=== PATIENT | female | born 1950 | race Caucasian/White ===

== ENCOUNTER 2024-04-24 13:17 | Outpatient (CLI) | payer MEDICARE, BC, SELFPAY ==
--- NOTE | ~2024-04-24 | MMUS_ITS ---
EXAMINATION: MM diagnostic calli BI w lydia, US axilla LT HISTORY: Palpable left axillary mass. TECHNIQUE: Additional 3-D tomosynthesis images of the breasts were performed and synthetic 2-D images were generated. CAD analysis was submitted and interpreted. High resolution left axillary ultrasound was performed. COMPARISON: None BREAST PARENCHYMAL COMPOSITION: Not dense: There are scattered areas of fibroglandular density. FINDINGS: MAMMOGRAPHIC FINDINGS: There is a complex heterogeneous mass in the left axilla overlying the pectoralis muscle on the MLO v iew. There is no mammographic evidence for malignancy in the right breast. ULTRASOUND: Left axillary ultrasound: There is a complex heterogeneous primarily hypoechoic area of soft tissue i n the left axilla which is poorly defined. There is mildly prominent left axillary lymph node measuri ng 1.7 x 1.7 x 0.8 cm with normal fatty hilum. No discrete fluid collection to suggest abscess. IMPRESSION: 1. Complex heterogeneous hypoechoic soft tissue in the left axilla corresponding to the palpable and mammographic abnormality. 2. Further evaluation with biopsy is recommended to exclude malignancy or infection. BI-RADS category 4, suspicious findings. Reviewed, dictated and finalized at location B. IMPRESSION: 1. Complex heterogeneous hypoechoic soft tissue in the left axilla correspondin g to the palpable and mammographic abnormality. 2. Further evaluation with biopsy is recommended to exclude malignancy or infec tion. BI-RADS category 4, suspicious findings.
== END 2024-04-24 13:18 | disposition home or self-care (01) ==
PROVIDERS: Visit Provider Family Medicine Sports Medicine
DX: R59.0 Localized enlarged lymph nodes (principal); Z80.3 Family history of malignant neoplasm of breast; R92.8 Other abnormal and inconclusive findings on diagnostic imaging of breast
CPT/HCPCS: 76882; 77062; 77066; G0279

== ENCOUNTER 2024-04-27 11:47 | Emergency (ER) | payer MEDICARE, BC, SELFPAY ==
--- NOTE | ~2024-04-27 | CT_ITS ---
EXAMINATION: CT diagnostic chest w con DATE: 04/27/2024 14:07 INDICATION: L axilla; cyst vs lymphadenopathy vs abscess TECHNIQUE: Computed tomography (CT) of the chest was performed with 100 mL Omnipaque-350 intravenous contrast. Additional 3D reconstructions utilizing coronal maximum intensity projection (MIP) were per formed. Automated exposure control and iterative reconstruction technique were employed. The dose-edilberto gth product was 214.92 mGy-cm. COMPARISON: None FINDINGS: Small pleural plaque with adjacent calcified subpleural nodules at the posterior medial aspect of the right lower lobe. There is an additional calcified nodule more centrally in the right lower lobe con sistent with old granulomatous disease. Mild discoid atelectasis/scarring with 12 x 6 mm nodule in th e medial segment of the right middle lobe which may represent material within a dilated bronchus asso ciated with the atelectasis/scarring. No pneumonia, pulmonary edema or pleural effusion. Heart size i s normal. No pericardial effusion. Thoracic aorta is normal in caliber. There is a markedly 5 x 3 x 2.5 cm ill-defined region of increased density of the subcutaneous fat at the left axilla potentially representing full or edema at the fat. No solid nodular soft tissue dens ities or discrete fluid collections. Relatively symmetric normal sized bilateral axillary lymph nodes which are positioned more cephalad on the right due to elevation of the right arm with the left arm remaining at the patient's side. No pathologically enlarged thoracic lymphadenopathy. 11 x 4 mm nodular density in the dependent aspect of the decompressed gallbladder which could represe nt either a sessile polyps or gallstones. Single diverticulum at the splenic flexure the colon withou t adjacent from trace stranding to suggest diverticulitis. Moderate thoracic spondylosis. Right total shoulder arthroplasty. IMPRESSION: 1. 5 x 3 x 2.5 cm region of poorly defined nonspecific increased density of the subcutaneous fat whic h suggests focal edema/inflammation with a few nearby normal-sized left axillary lymph nodes. No abno rmal nodular soft tissue densities within this region or discrete fluid collections. 2. Indeterminate 12 x 6 mm nodular opacity in the right middle lobe potentially representing fluid wi thin a dilated bronchus. Recommend correlation with any prior outside imaging. If long-term stability cannot be confirmed would recommend 3-6 month follow-up low-dose noncontrast chest CT. 3. 11 x 4 mm nodular density in the gallbladder which could represent either a sessile polyp or galls tone. Would recommend right upper quadrant ultrasound for further evaluation. Reviewed, dictated and finalized at location A. IMPRESSION: 1. 5 x 3 x 2.5 cm region of poorly defined nonspecific increased density of the subcutaneous fat which suggests focal edema/inflammation with a few nearby nor mal-sized left axillary lymph nodes. No abnormal nodular soft tissue densities within this region or discrete fluid collections. 2. Indeterminate 12 x 6 mm nodular opacity in the right middle lobe potentially representing fluid within a dilated bronchus. Recommend correlation with any p rior outside imaging. If long-term stability cannot be confirmed would recommen d 3-6 month follow-up low-dose noncontrast chest CT. 3. 11 x 4 mm nodular density in the gallbladder which could represent either a sessile polyp or gallstone. Would recommend right upper quadrant ultrasound for further evaluation.
[2024-04-27 11:51] VITALS: BP 175/97; PULSE 80; RESP 18; TEMP 36.3; O2SAT 100
--- NOTE | 2024-04-27 13:05 | ED.SKABFB ---
HPI - Skin/Abscess/Foreign Bdy General Chief complaint: Skin/Abscess/Foreign Body Stated complaint: cysts under arm, ALISHA told to come Time Seen by Provider: 04/27/24 12:33 Source: patient, family (sister) and other (Dr Sargent) Mode of arrival: ambulatory Limitations: no limitations History of Present Illness HPI narrative: Patient presents with a mass in her left axilla that is been present for 1-2 weeks. Patient had been evaluated for this and prescribed Bactrim on 04/18/2024 followed by clindamycin on 04/19/2024. She states she presented to emergency department in [place] last and underwent CT imaging which she was told was an infected but empty cyst (?). Patient had been referred to Dr. Sargent's office but had not yet established with him. She denies any fevers. Patient does occasionally have contact with her son who has been treated before for MRSA as well as other antibiotic resistant organisms including. She also had a mammogram recently which had also mentioned this mass. Patient states she accidentally scratched the area a few days ago drained this home pink/red/purulent material. It has continued to occasionally ooze/drain. No fevers. She and sister note it had been hot/warm/red. Dr Sargent had notified ED prior to patient's arrival that she would be coming. Related Data Allergies Allergy/AdvReac Type Severity Reaction Status Date / Time No Known Allergies Allergy Verified 04/27/24 11:54 PMFSH Past Medical History Medical History (Updated 04/28/24 @ 05:35 by Shirley Flores MD) Screening mammogram, encounter for April 2024 Family History Family History (Updated 04/28/24 @ 05:35 by Shirley Flores MD) Other Breast cancer Social History Social History (Updated 04/28/24 @ 05:38 by Shirley Flores MD) Social History: Has a sister Volunteers at a [employer] Exam Narrative: GENERAL: Well-appearing, well-nourished, and in no acute distress. HEAD: Normocephalic, atraumatic. EYES: Non injected, non icteric ENT: Nares clear, no rhinorrhea or epistaxis. NECK: Supple. CHEST: Speaking in full sentences. No respiratory distress. HEART: Regular rate and rhythm. . ABDOMEN: Soft, nondistended. EXTREMITIES: Normal range of motion. No edema. SKIN: Warm, dry. Slightly firm/rubbery texture of a 6x6cm mass (based on grasping) at left axilla, fairly mobile. 2 superficial wounds overly them without active drainage. Not particularly warm. Very mild erythema. NEURO: No focal deficits. Alert and oriented x3. PSYCH: Normal mood and affect. Course Vital Signs Vital signs: Vital Signs Temperature 97.3 F L 04/27/24 11:51 Pulse Rate 80 04/27/24 11:51 Respiratory Rate 18 04/27/24 11:51 Blood Pressure 175/97 H 04/27/24 11:51 Pulse Oximetry 100 04/27/24 11:51 Oxygen Delivery Room Air 04/27/24 11:51 Temperature 98.6 F 04/27/24 16:30 Pulse Rate 78 04/27/24 16:30 Respiratory Rate 16 04/27/24 16:30 Blood Pressure 137/62 04/27/24 16:30 Pulse Oximetry 98 04/27/24 16:30 Oxygen Delivery Room Air 04/27/24 11:51 MDM - Skin/Abscess/Foreign Bdy MDM Narrative Medical decision making narrative: Patient presents with fell left axillary mass that has been present for the past 1-2 weeks. Patient had been referred to Dr Sargent whose office recommended she present to the ED; Dr Sargent had notified ED of patient's arrival prior. In the emergency department she is afebrile with vital signs that show hypertension. Mass on the surface is approximately 6 cm x 6 cm, firm/rubbery but not frankly indurated. Point of care/bedside ultrasound performed by myself. Structure does not appear to be a discrete abscess as it is poorly defined. Reviewed recent imaging patient underwent (ultrasound/mammogram) that recommended US-guided biopsy. Unable to view CT imaging from last week at OSH. Will obtain labs and obtain CT imaging ; discussed with Dr Sargent. Creatinine mildly elevate
[2024-04-27 13:45] LABS: Basophils Percent Auto 0.6 % (0.2-1.2); Eosinophils Absolute Auto 0.1 K/mm3 (0-0.3); Eosinophils Percent Auto 1.8 % (0-4.4); Hematocrit 39.9 % (37.0-47.0); Hemoglobin 12.6 g/dL (12.0-15.0); Immature Granulocyte Absolute 0.05 K/mm3 (0.00-0.031); Immature Granulocyte Percent A 0.8 % (0-0.5); Lymphocytes Absolute Auto 1.77 K/mm3 (0.9-3.2); Lymphocytes Percent Auto 28.5 % (18.3-44.2); Mean Corpuscular HGB Conc 31.6 g/dl (32-36); Mean Corpuscular Hemoglobin 28.6 pg (26-34); Mean Corpuscular Volume 90.5 fl (80-100); Mean Platelet Volume 8.6 fl (7.4-10.4); Monocytes Absolute Auto 0.5 K/mm3 (0.1-0.6); Monocytes Percent Auto 8.4 % (2.6-8.5); Neutrophils Absolute Auto 3.7 K/mm3 (1.3-6.7); Neutrophils Percent Auto 59.9 % (45.5-73.1); Platelet Count Result 394 k/mm3 (150-375); Red Blood Count 4.41 M/mm3 (4.2-5.4); Red Cell Distribution Width 13.4 % (11.5-14.5); White Blood Count 6.2 K/mm3 (4.5-10.0)
[2024-04-27 13:53] LABS: Anion Gap 10 mmol/L (4-12); Blood Urea Nitrogen 17 mg/dL (7-17); Calcium 9.6 mg/dL (8.4-10.2); Carbon Dioxide 28 mmol/L (22-30); Chloride 100 mmol/L (98-107); Estimated CRCL calculation 38 ml/min; Estimated Glomerular Filt Rate 49; Glucose 104 mg/dL (65-110); Potassium 4.7 mmol/L (3.4-5.0); Sodium 138 mmol/L (137-145)
[2024-04-27 13:54] LABS: Lactic Acid Reflex 1.6 mmol/L (0.7-2.0)
[2024-04-27] MEDS: SODIUM CHLORIDE 0.9% IV 1,000 ML 999 ML IV CONT (14:26)
[2024-04-27 16:30] VITALS: BP 137/62; PULSE 78; RESP 16; TEMP 37; O2SAT 98
== END 2024-04-27 16:31 | disposition home or self-care (01) ==
PROVIDERS: Emergency Provider Student in an Organized Health Care Education/Training Program
DX: R22.32 Localized swelling, mass and lump, left upper limb (principal); D75.839 Thrombocytosis, unspecified; N17.9 Acute kidney failure, unspecified; K82.9 Disease of gallbladder, unspecified; R91.8 Other nonspecific abnormal finding of lung field
CPT/HCPCS: 36415; 71260; 80048; 83605; 85025; 96360; 99284; J7030; Q9967

== ENCOUNTER 2024-05-03 10:43 | Outpatient (CLI) | payer MEDICARE, BC, SELFPAY ==
[2024-05-03 12:13] LABS: Anion Gap 7 mmol/L (4-12); Blood Urea Nitrogen 17 mg/dL (7-17); Calcium 9.3 mg/dL (8.4-10.2); Carbon Dioxide 30 mmol/L (22-30); Chloride 102 mmol/L (98-107); Estimated Glomerular Filt Rate > 60; Glucose 96 mg/dL (65-110); Potassium 4.6 mmol/L (3.4-5.0); Sodium 139 mmol/L (137-145)
== END 2024-05-03 10:44 | disposition home or self-care (01) ==
LOC: ANHLAB 10:46
PROVIDERS: PCP Family Medicine Sports Medicine; Visit Provider Surgery
DX: N17.9 Acute kidney failure, unspecified (principal)
CPT/HCPCS: 36415; 80048

== ENCOUNTER 2024-05-07 08:47 | Outpatient (CLI) | payer MEDICARE, BC, SELFPAY ==
--- NOTE | ~2024-05-07 | US_ITS ---
Limited ABDOMINAL ULTRASOUND Ordering provider: Odell Sargent MD History: . R93.2 - Abnormal findings on diagnostic imaging of liver ... . Comparison: None. FINDINGS: LIVER: Normal size and echotexture. The liver measures 14.5 cm. No focal hepatic lesions or perihepat ic fluid collections are identified. Normal portal vein flow. GALLBLADDER: Cholelithiasis. Stone measures 0.8 cm. No evidence for sludge, gallbladder wall thickeni ng or pericholecystic fluid collections. The gallbladder wall measures 0.2 cm. A negative sonographic Veras's sign was noted. BILIARY DUCTS: No evidence for intra or extrahepatic biliary dilation. Common bile duct measures 6 mm in diameter which is within normal limits. PANCREAS: Normal echotexture and size. IMPRESSION: Cholelithiasis with no evidence of acute cholecystitis. Other appearances are unremarkable. Reviewed, dictated and finalized at location A.
== END 2024-05-07 08:48 ==
LOC: GOSHIMG 08:48
PROVIDERS: PCP Family Medicine Sports Medicine; Visit Provider Surgery
DX: K80.20 Calculus of gallbladder without cholecystitis without obstruction (principal); R93.2 Abnormal findings on diagnostic imaging of liver and biliary tract
CPT/HCPCS: 76705

== ENCOUNTER 2024-05-15 08:54 | Outpatient (CLI) | payer MEDICARE, BC, SELFPAY ==
--- NOTE | ~2024-05-15 | US_ITS ---
EXAMINATION: US_BXSTAXLIMG_US DATE: 05/15/2024 10:12 INDICATION: Localized swelling, mass and lump, left axilla. TECHNIQUE: The procedure including the risks, benefits, and alternatives was discussed with the patie nt. Risks discussed included bleeding and infection. The patient understood the risks and agreed to p roceed. The skin overlying the left axilla was prepped and draped in usual sterile fashion. Anesthet ic was administered with 1% lidocaine subcutaneously. An 18-gauge spinal needle was inserted into the left axillary cystic mass under ultrasound guidance. The fluid component of the mass was expressed t hrough the needle. An 18 gauge core biopsy needle was then used to obtain 3 core biopsy specimens und er continuous sonographic guidance. The entry site was cleaned and dressed. There were no immediate complications. FINDINGS: Ultrasound images demonstrate the needle in 3.1 x 0.5 cm cystic component of the left axill alethea abnormality. Ultrasound images demonstrate needles advanced into the surrounding hyperechoic comp onent in the subcutaneous fat for biopsy. IMPRESSION: 1. Ultrasound-guided core needle biopsy and drainage of an ill-defined hyperechoic subcutaneous left axillary mass with central cystic component, most likely an abscess. Reviewed, dictated and finalized at location A. IMPRESSION: 1. Ultrasound-guided core needle biopsy and drainage of an ill-defined hyperech oic subcutaneous left axillary mass with central cystic component, most likely an abscess.
== END 2024-05-15 08:55 | disposition home or self-care (01) ==
PROVIDERS: PCP Family Medicine Sports Medicine; Visit Provider Surgery
DX: R22.32 Localized swelling, mass and lump, left upper limb (principal)
CPT/HCPCS: 20999; 76942; 88305

== ENCOUNTER 2025-04-30 14:39 | Outpatient (CLI) | payer MEDICARE, BC, SELFPAY ==
--- NOTE | ~2025-04-30 | CT_ITS ---
EXAMINATION: CT diagnostic chest wo con DATE: 04/30/2025 15:07 INDICATION: R91.1 - Solitary pulmonary nodule TECHNIQUE: Computed tomography (CT) of the chest was performed without intravenous contrast. Addition al 3D reconstructions utilizing coronal maximum intensity projection (MIP) were performed. Automated exposure control and iterative reconstruction technique were employed. The dose-length product was 95 .22 mGy-cm. COMPARISON: 10/28/2024 FINDINGS: No interval change in a right middle lobe 8 mm endobronchial nodule with bronchiectasis of the more p eripheral bronchus. Unchanged noncalcified pleural plaque along the posterior right lower lobe along with multiple unchanged chronic calcite nodules in the right lower lobe. There are a few additional u nchanged noncalcified nodules measuring up to 5 mm in the right middle lobe and 4 mm in the left lowe r lobe. No new or enlarging pulmonary nodules. No pneumonia, pulmonary edema or pleural effusion. Hea rt size normal. Small amount of atherosclerotic coronary artery calcium location. No pericardial effu dante. Thoracic aorta is normal in caliber. No pathologically enlarged thoracic lymphadenopathy. Calci fied gallstone in the dependent aspect of the otherwise normal-appearing gallbladder. Moderate thorac ic spondylosis. IMPRESSION: 1. No interval change in several pulmonary nodules measuring up to 8 mm, most likely sequela of old g ranulomatous disease. Recommend one-year follow-up low-dose noncontrast chest CT. 2. Cholelithiasis. Reviewed, dictated and finalized at location A. IMPRESSION: 1. No interval change in several pulmonary nodules measuring up to 8 mm, most l ikely sequela of old granulomatous disease. Recommend one-year follow-up low-do se noncontrast chest CT. 2. Cholelithiasis.
--- OUTSIDE RECORDS SUMMARY | 2025-04-30 14:52 | XMS_ITS | Referral Summary ---
Author Organization [facility] Address [address] [place] [id number] Care Team Providers Care Hvac Specialist Name Role Phone Deborah Evans DO Primary Care Provider [phone] Allergies No known active allergies Medications DULoxetine DR (CYMBALTA) 60 mg capsuleIndicati ons:Anxiety with Depression Take 1 capsule (60 mg total) by mouth 2 (two) times a day Active montelukast (SINGULAIR) 10 mg tabletIndicatio ns:Maintenance Therapy for Asthma Take 1 tablet (10 mg total) by mouth nightly [address] (PROTONIX) 40 mg EC tabletIndicatio ns:Treatment of Non-Bleeding Gastric Disorder Take 1 tablet (40 mg total) by mouth every morning Active pravastatin (PRAVACHOL) 20 mg tabletIndicatio ns:hyperlipidem ia Take 1 tablet (20 mg total) by mouth head of art before breakfast 0 9 Active carboxymethylce llulose (REFRESH TEARS) 0.5 % ophthalmic solutionIndicat ions:Dry Eye Administer 1 drop into both eyes as needed Active busPIRone (BUSPAR) 5 mg tabletIndicatio ns:Generalized Anxiety Disorder Take 1 tablet (5 mg total) by mouth as needed 0 Active Breo Ellipta 200-25 mcg/dose diskus inhalerIndicati ons:Maintenance Therapy for Asthma Inhale 1 puff as needed 0 Active levothyroxine (SYNTHROID) 150 mcg tabletIndicatio ns:hypothyroidi sm Take 1 tablet (150 mcg total) by mouth head of art before breakfast 0 Active losartan (COZAAR) 100 mg tabletIndicatio ns:hypertension Take 1 tablet (100 mg total) by mouth every morning 0 Active calcium carbonate-vitam in D3 500mg (1,250mg) -600 unit tabletIndicatio ns:Hypocalcemia Prevention Take 1 tablet/capsule by mouth head of art before breakfast Active buPROPion XL (WELLBUTRIN XL) 150 mg 24 hr tabletIndicatio ns:Anxiety with Depression Take 1 tablet (150 mg total) by mouth every morning 3 Active albuterol (PROAIR RESPICLICK) 90 mcg/actuation inhalerIndicati ons:Acute Asthma Attack Inhale 2 puffs every 6 (six) hours as needed for wheezing Active fluticasone propionate (FLONASE) 50 mcg/actuation nasal sprayIndication s:Allergic Rhinitis Administer 1 spray into each nostril as needed for rhinitis Active ZINC ORALIndications :supplement Take 1 tablet/capsule by mouth every morning Active UNABLE TO FINDIndications :supplement Take 1 each by mouth every morning Med Name: Golo Active UNABLE TO FINDIndications :supplement Take 1 each by mouth every morning Med Name: Cogniforce Active MULTIVITAMIN ORALIndications :supplement Take 1 tablet/capsule by mouth every morning Active oxyCODONE (ROXICODONE) 5 mg immediate release tabletIndicatio ns:Pain Take 1 tablet (5 mg total) by mouth every 4 (four) hours as needed for pain 40 tablet 4 Active acetaminophen (TYLENOL) 500 mg tabletIndicatio ns:Pain Take 2 tablets (1,000 mg total) by mouth every 6 (six) hours 120 tablet 4 Active aspirin 81 mg enteric coated tabletIndicatio ns:prevention of thrombosis Take 1 tablet (81 mg total) by mouth 2 (two) times a day for 14 days 28 tablet 4 Active docusate sodium (COLACE) 100 mg capsuleIndicati ons:constipatio n Take 1 capsule (100 mg total) by mouth 2 (two) times a day 30 capsule 4 Active Active Problems Problem Noted Date Diagnosed Date Arthritis of right glenohumeral joint 12/14/2023 Primary osteoarthritis of right shoulder 023 Chronic kidney disease, unspecified 05/23/2022 Hypertensive chronic kidney disease w stg 1-4/un sp chr kdny 05/23/2022 Mild intermittent asthma without complication Other chronic pain 05/23/2022 Other disorders of pituitary gland 05/23/2022 Presence of left artificial knee joint Recurrent major depressive disorder, in remissio n 05/23/2022 Primary osteoarthritis of left hip 05/20/2022 Primary localized osteoarthritis of left hip Overview (03/02/2022): Added automatically from request for surgery [id number] Primary osteoarthritis of right hip 01/11/2022 Overview (01/11/2022): Added automatically from request for surgery [id number] Spinal stenosis of lumbosacral region 05/19/2021 Overview (12/03/2021): L3-4, L4-5, L5-S1 worst Generalized anxiety disorder 03/17/2020 Sciatica of left side 03/17/2020 Multiple lung nodules on CT 11/12/[address] of the abdomen 09/25/2019 Generalized abdominal pain 09/11/2019 Allergic rhinitis 06/27/2018 Overview (12/03/2021): Date Onset: 06/27/2018 Date Onset: 06/27/2018 Date Onset: 06/27/2018 BMI 36.0-36.9,adult 06/27/2018 Overview (12/03/2021): Date Onset: 06/27/2018 Date Onset: 06/27/2018 Date Onset: 06/27/2018 Fatigue 06/27/2018 Overview (12/03/2021): Date Onset: 06/27/2018 Date Onset: 06/27/2018 Date Onset: 06/27/2018 Marital conflict 06/27/2018 Overview (12/03/2021): Date Onset: 06/27/2018 Date Onset: 06/27/2018 Date Onset: 06/27/2018 Pruritic disorder 06/27/2018 Overview (12/03/2021): Date Onset: 06/27/2018 Date Onset: 06/27/2018 Date Onset: 06/27/2018 RLS (restless legs syndrome) 06/27/2018 Overview (12/03/2021): Note: Dr. Gasper Rainey Date Onset: 05/21/12 Date Onset: 06/27/2018 Note: Dr. Gasper Rainey Date Onset: 05/21/12 Date Onset: 06/27/2018 Note: Dr. Gasper Rainey Date Onset: 05/21/12 Date Onset: 06/27/2018 Seborrheic keratosis 06/27/2018 Overview (12/03/2021): Date Onset: 06/27/2018 Date Onset: 06/27/2018 Date Onset: 06/27/2018 UTI (urinary tract infection) 06/27/2018 Overview (12/03/2021): Date Onset: 06/27/2018 Date Onset: 06/27/2018 Date Onset: 06/27/2018 Urinary frequency 06/27/2018 Overview (12/03/2021): Date Onset: 06/27/2018 Date Onset: 06/27/2018 Date Onset: 06/27/2018 Cholecystitis 12/08/2017 Overview (12/03/2021): Date Onset: 12/08/2017 Date Onset: 12/08/2017 Date Onset: 12/08/2017 Hiatal hernia 12/08/2017 Overview (12/03/2021): Date Onset: 12/10/2013 Date Onset: 12/08/2017 Date Onset: 12/08/2017 Date Onset: 12/10/2013 Date Onset: 12/08/2017 Date Onset: 12/08/2017 Date Onset: 12/10/2013 Date Onset: 12/08/2017 Date Onset: 12/08/2017 Vertigo 12/08/2017 Overview (12/03/2021): Date Onset: 12/08/2017 Date Onset: 12/08/2017 Date Onset: 12/08/2017 Forgetfulness 07/28/2017 Overview (12/03/2021): Date Onset: 07/28/2017 Date Onset: 07/28/2017 Date Onset: 07/28/2017 Headache 07/28/2017 Overview (12/03/2021): Date Onset: 07/28/2017 Date Onset: 07/28/2017 Date Onset: 07/28/2017 History of surgical procedure 07/28/2017 Overview (08/05/2020): Date Onset: 07/28/2017 Herniation of intervertebral disc between L5 and S1 07/28/2017 Overview (12/03/2021): Date Onset: 07/28/2017 Date Onset: 07/28/2017 Date Onset: 07/28/2017 Impaired fasting glucose 07/28/2017 Overview (12/03/2021): Date Onset: 07/28/2017 Date Onset: 06/27/2018 Date Onset: 07/28/2017 Date Onset: 06/27/2018 Date Onset: 07/28/2017 Date Onset: 06/27/2018 Numbness of finger 07/28/2017 Overview (12/03/2021): Date Onset: 07/28/2017 Date Onset: 07/28/2017 Date Onset: 07/28/2017 Osteophyte 07/28/2017 Overview (12/03/2021): Date Onset: 02/25/2014 Date Onset: 07/28/2017 Date Onset: 02/25/2014 Date Onset: 07/28/2017 Date Onset: 02/25/2014 Date Onset: 07/28/2017 Spinal stenosis of lumbar region 07/28/2017 Overview (12/03/2021): Date Onset: 02/25/2014 Date Onset: 07/28/2017 Date Onset: 02/25/2014 Date Onset: 07/28/2017 Date Onset: 02/25/2014 Date Onset: 07/28/2017 History of lumbar laminectomy for spinal cord de compression 07/28/2017 Overview (12/03/2021): Date Onset: 07/28/2017 Date Onset: 07/28/2017 Arachnoid cyst 09/16/2016 Overview (12/03/2021): Date Onset: 11/13/2015 Date Onset: 11/13/2015 Date Onset: 11/13/2015 Lesion of brain 09/16/2016 Overview (12/03/2021): Date Onset: 07/28/2017 Date Onset: 08/05/2016 Date Onset: 07/28/2017 Date Onset: 08/05/2016 Date Onset: 07/28/2017 Date Onset: 08/05/2016 JV positive 08/05/2016 Overview (12/03/2021): Date Onset: 08/05/2016 Date Onset: 08/05/2016 Date Onset: 08/05/2016 Degenerative disc disease, cervical 08/05/2016 Overview (12/03/2021): Date Onset: 08/05/2016 Date Onset: 05/28/2015 Date Onset: 08/05/2016 Date Onset: 05/28/2015 Date Onset: 08/05/2016 Date Onset: 05/28/2015 Postmenopausal 08/05/2016 Overview (12/03/2021): Date Onset: 08/05/2016 Date Onset: 08/05/2016 Date Onset: 08/05/2016 Spondylolisthesis 08/05/2016 Overview (12/03/2021): Date Onset: 03/29/2014 Date Onset: 05/28/2015 Date Onset: 08/05/2016 Date Onset: 03/29/2014 Date Onset: 05/28/2015 Date Onset: 08/05/2016 Date Onset: 03/29/2014 Date Onset: 05/28/2015 Date Onset: 08/05/2016 Vitreous detachment of both eyes 08/05/2016 Overview (12/03/2021): Date Onset: 08/05/2016 Date Onset: 08/05/2016 Date Onset: 08/05/2016 Self-excoriation disorder 04/27/2016 Overview (12/03/2021): Date Onset: 04/27/2016 Date Onset: 04/27/2016 Date Onset: 04/27/2016 Biomechanical lesion 11/13/2015 Overview (12/03/2021): Date Onset: 11/13/2015 Date Onset: 11/13/2015 Date Onset: 11/13/2015 Date Onset: 11/13/2015 Date Onset: 11/13/2015 Date Onset: 11/13/2015 Nonallopathic lesion of sacral region 11/13/2015 Overview (12/03/2021): Date Onset: 11/13/2015 Date Onset: 11/13/2015 Date Onset: 11/13/2015 Other cervical disc displace ment, unspecified cervical region 11/13/2015 Overview (12/03/2021): Date Onset: 11/13/2015 Date Onset: 11/13/2015 Date Onset: 11/13/2015 Anxiety 07/01/2015 Hypothyroidism 07/01/2015 Urinary incontinence 07/01/2015 Empty sella syndrome 07/01/2015 Gastroesophageal reflux disease 07/01/2015 Hyperlipidemia 07/01/2015 Migraine headache 07/01/2015 Diarrhea 05/08/2015 Overview (12/03/2021): Date Onset: 05/08/2015 Date Onset: 05/08/2015 Date Onset: 05/08/2015 Date Onset: 05/08/2015 Date Onset: 05/08/2015 Date Onset: 05/08/2015 Swelling of first metatarsophalangeal (MTP) join t 05/08/2015 Overview (12/03/2021): Date Onset: 05/08/2015 Date Onset: 05/08/2015 Date Onset: 05/08/2015 Vision changes 05/08/2015 Overview (12/03/2021): Date Onset: 05/08/2015 Date Onset: 05/08/2015 Date Onset: 05/08/2015 Injury to nerve roots and spinal plexus 02/26/20 14 Overview (12/03/2021): Date Onset: 02/25/2014 Date Onset: 02/25/2014 Date Onset: 02/25/2014 Other symptoms involving head and neck 4 Overview (12/03/2021): Date Onset: 02/25/2014 Date Onset: 02/25/2014 Date Onset: 02/25/2014 Nausea with vomiting 02/05/2014 Overview (12/03/2021): Date Onset: 02/05/2014 Date Onset: 02/05/2014 Date Onset: 02/05/2014 Intervertebral disc disorder with radiculopathy of lumbosacral region 01/03/2014 Overview (12/03/2021): Added automatically from request for surgery [id number] Date Onset: 01/03/2014 Overview: Added automatically from request for surgery [id number] Added automatically from request for surgery [id number] Chronic low back pain 01/03/2014 Overview (12/03/2021): Date Onset: 12/08/2017 Date Onset: 01/03/2014 Date Onset: 12/08/2017 Date Onset: 01/03/2014 Date Onset: 12/08/2017 Date Onset: 01/03/2014 Hypertension 01/03/2014 Overview (12/03/2021): Date Onset: 07/28/2017 Date Onset: 01/03/2014 Date Onset: 06/27/2018 Date Onset: 11/09/2016 Date Onset: 07/28/2017 Date Onset: 01/03/2014 Date Onset: 06/27/2018 Date Onset: 11/09/2016 Date Onset: 07/28/2017 Date Onset: 01/03/2014 Date Onset: 06/27/2018 Date Onset: 11/09/2016 Left leg pain 01/03/2014 Overview (12/03/2021): Date Onset: 01/03/2014 Date Onset: 01/03/2014 Date Onset: 01/03/2014 Disturbance of skin sensation 11/19/2013 Overview (12/03/2021): Date Onset: 11/19/2013 Date Onset: 11/19/2013 Date Onset: 11/19/2013 Other specified disorders of rotator cuff syndrome of shoulder and allied disorders 11/19/2013 Overview (12/03/2021): Date Onset: 07/12/2013 Date Onset: 11/19/2013 Date Onset: 07/12/2013 Date Onset: 11/19/2013 Date Onset: 07/12/2013 Date Onset: 11/19/2013 Pain in joint, hand 11/19/2013 Overview (12/03/2021): Date Onset: 06/04/2013 Date Onset: 11/19/2013 Date Onset: 06/04/2013 Date Onset: 11/19/2013 Date Onset: 06/04/2013 Date Onset: 11/19/2013 Shoulder pain 11/19/2013 Overview (12/03/2021): Date Onset: 11/19/2013 Date Onset: 11/19/2013 Date Onset: 11/19/2013 Upper respiratory infection 11/19/2013 Overview (12/03/2021): Date Onset: 11/19/2013 Date Onset: 11/19/2013 Date Onset: 11/19/2013 Other depressive disorder 07/12/2013 Overview (12/03/2021): Date Onset: 07/12/2013 Date Onset: 07/12/2013 Date Onset: 07/12/2013 Personal history presenting hazards to health Overview (12/03/2021): Date Onset: 06/04/2013 Date Onset: 06/04/2013 Date Onset: 06/04/2013 Generalized osteoarthrosis, involving multiple s ites 02/16/2013 Overview (12/03/2021): Note: right hip Date Onset: 02/16/2013 Note: right hip Date Onset: 02/16/2013 Note: right hip Date Onset: 02/16/2013 Arthralgia of hip 02/15/2013 Overview (12/03/2021): Date Onset: 02/15/2013 Date Onset: 02/15/2013 Date Onset: 02/15/2013 Family history of other cardiovascular diseases 02/15/2013 Overview (12/03/2021): Date Onset: 02/15/2013 Date Onset: 02/15/2013 Date Onset: 02/15/2013 Fecal urgency 02/15/2013 Overview (12/03/2021): Date Onset: 12/08/2017 Date Onset: 02/15/2013 Date Onset: 12/08/2017 Date Onset: 02/15/2013 Date Onset: 12/08/2017 Date Onset: 02/15/2013 Laboratory exam ordered as p art of routine general medical examination 02/15/2013 Overview (12/03/2021): Date Onset: 02/15/2013 Date Onset: 02/15/2013 Date Onset: 02/15/2013 Other chronic nonalcoholic liver disease 013 Overview (12/03/2021): Date Onset: 02/15/2013 Date Onset: 06/12/2013 Date Onset: 02/15/2013 Date Onset: 06/12/2013 Date Onset: 02/15/2013 Date Onset: 06/12/2013 Other specified abnormal findings of blood chemi stry 02/15/2013 Overview (12/03/2021): Date Onset: 02/15/2013 Date Onset: 02/15/2013 Date Onset: 02/15/2013 Esophagitis, reflux 08/18/2012 Overview (12/03/2021): Date Onset: 01/2011 Date Onset: 01/2011 Date Onset: 01/2011 Dry skin 08/18/2012 Other, multiple, and unspeci fied sites, insect bite, nonvenomous, infected 06/01/2012 Overview (12/03/2021): Date Onset: 06/01/2012 Date Onset: 06/01/2012 Date Onset: 06/01/2012 Asthma 01/14/2012 Sleep apnea, obstructive 01/14/2012 Overview (12/03/2021): Note: Dr. Gasper Rainey Date Onset: 01/15; 05/21/12 Note: Dr. Gasper Rainey Date Onset: 01/15; 05/21/12 Note: Dr. Gasper Rainey Date Onset: 01/15; 05/21/12 Immunizations Immunization Administration Dates Next Due Influenza, Quad, Adjuvantate d, Intramuscular 07/20/2020 Influenza, Quadrivalent, Hig h Dose, Preservative Free, Intrr 06/23/2021 Influenza, Trivalent, High D ose, Split, Preservative Free, Intramuscular 06/23/2021,07/16/2019,07/18/2018,07/13 Influenza, Trivalent, Preser vative Free, Intramuscular 07/23/2017,07/23/2017,08/10/2015,10/10,10/10/2014,07/10/2014 Influenza, Unspecified 06/23/2021,2019,07/20/2020,07/20,07/16/2019,07/17/2018,07/10/2018 ,07/23/2017,07/23/2017,07/13/2017,01/2017,09/09/2016,08/10/2015, 5,10/10/2014,07/10/2014 Pneumococcal Conjugate PCV 13 07/18/2018 Pneumococcal Conjugate, Unspecified 07/18/2018 Pneumococcal Polysaccharide PPV23 08/31/2020,,09/16/2016 Tdap 11/10/2024,09/16/2016 ZOSTER Recombinant 02/17/2021,,02/17/2021,10/14,10/14/2020 Social History Tobacco Use Types Packs/Day Years Used Date Smoking Tobacco: Former Cigarettes 1 10 1 965 - 1974 Smokeless Tobacco: Never Tobacco Cessation:Counseling Given: Not Answered Alcohol Use Standard Drinks/Week Comments Yes 0 (1 standard drink = 0.6 oz pur e alcohol) less than 1 per month AUDIT-C Answer Date Recorded Q1: How often do you have a drink containing alc ohol? 2-4 times a month 12/14/2023 Average Number of Drinks Not on file 024 Frequency of Binge Drinking Not on file 03/2024 Personal Safety Answer Date Recorded Have you ever been in or are you currently in a harmful physical or emotional relationship or is someone making you feel afraid or unsafe? Denies 11/10/2024 Comments No Sex and Gender Information Value Date Recorded Sex Assigned at Not on file Legal Sex Female 6:42 AM SPINNING FRAME [employer] Gender Identity Not on file Sexual Orientation Not on file Occupation Industry Job Start Date Job End Date Retired Not on file Not on file Not on file Last Filed Vital Signs Vital Sign Reading Time Taken Comments Blood Pressure 163/82 11/11/2024 1:30 AM [employer] Pulse 84 11/11/2024 1:30 AM [employer]ING [employer] Temperature 36.4 C (97.6 F) 11/10/2024 11:00 PM [employer]ING [employer] Respiratory Rate 29 11/11/2024 1:30 AM [employer]ING [employer] Oxygen Saturation 98% 11/11/2024 1:30 AM [employer]ING FRAME [employer] Inhaled Oxygen Concentration - - Weight 73 kg (161 lb) 05/08/2024 1:07 PM CDT Height 156.2 cm (5' 1.5) 05/08/2024 1:07 PM CDT Body Mass Index 29.93 05/08/2024 1:07 PM CDT Plan of Treatment Not on file Goals Goal Patient Goal Type Associated Problems Recent Progress Patient-Stated? Author CCM Chronic Pain Care Plan Chronic Care Management No Yudi Morales, RN Note: Problem: Chronic Pain Goals: 1. Minimize further functional decline 2. Maximize quality of life 3. Control pain Strategies: - Activity/exercise program recommendation - Conservative stepwise pain medicine strategy with multi-disciplinary approach - Recommend healthy lifestyle strategies and compensatory methods as needed Reduce the likelihood of falling Lifestyle No Yudi Morales, RN Note: Below are four things you can do to prevent falls: Begin an exercise program to improve your leg strength & balance Ask your doctor or pharmacist to review your medicines Get annual eye check-ups & update your eyeglasses Make your home safer by: Removing clutter & tripping hazards Putting railings on all stairs & adding grab bars in the bathroom Having good lighting, especially on stairs Contact your local community or senior center for information on exercise, fall prevention programs, or options for improving home safety. Medical Devices Implanted Type Area Lacquer Machine Feeder Device Identifier Shelf Expiration Date Model / Serial / Lot [employer] [place] 56mm Sector Hip Shell Acetabular Gription Sterile Latex Free [id number] - [id number] Implanted:Qty: 1 on 01/27/2022 by Raymon Roque MD at [facility] Right: Hip [employer] [id number] 11/09/2031 [id number] / / [employer] [place] 6.5mm 30mm Acetabular Cancellous Screw Bone Revision 1217-30-500 - [id number] Implanted:Qty: 1 on 01/27/2022 by Raymon Roque MD at [facility] Right: Hip [employer] [id number] 06/09/2031 1217-30-500 / / [employer] [id number] [place] 56mm 40mm Hip Neutral Liner Acetabular Altrx Sterile - [id number] Implanted:Qty: 1 on 01/27/2022 by Raymon Roque MD at [facility] Right: Hip [employer] [id number] 11/09/2026 [id number] / / [employer] [id number] Actis Collared Hip 09/22 4 Standard Offset Stem Femoral - [id number] Implanted:Qty: 1 on 01/27/2022 by Raymon Roque MD at [facility] Right: Hip [employer] [id number] 04/08/2031 [id number] / / [id number] [employer] Articul/Chase 40mm Sleeve Total Stabilize Hip +1.5mm 09/22 Taper [id number] - [id number] Implanted:Qty: 1 on 01/27/2022 by Raymon Roque MD at [facility] Right: Hip [employer] [id number] 11/09/2026 [id number] / / [id number] [employer] Stem Insignia Hip Size 4 High Offset 4672-6171 - [id number] Implanted:Qty: 1 on 05/20/2022 by Raymon Roque MD at [facility] Left: Hip [employer] [id number] 03/31/2027 0434-1815 / / [id number] [employer] V40 Hip -2.5mm Offset [place] Taper Sleeve Adapter Titanium 6519-T-025 - [id number] Implanted:Qty: 1 on 05/20/2022 by Raymon Roque MD at [facility] Left: Hip [employer] [id number] 11/18/2026 6519-T-025 / / [id number] [employer] 40mm Hip [place] Taper Head Femoral Biolox Delta 6519-1-040 - [id number] Implanted:Qty: 1 on 05/20/2022 by Raymon Roque MD at [facility] Left: Hip [employer] [id number] 01/26/2027 6519-1-040 / / [id number] [employer] Shell Acetabular Trident Ii Tritanium E Od52mm Hip 11 Hole Sterile 709-04-52e - [id number] Implanted:Qty: 1 on 05/20/2022 by Raymon Roque MD at [facility] Left: Hip [employer] [id number] 04/01/2027 709-04-52E / / [id number] [employer] Screw Bone Trident Ii L25mm Od6.5mm Low Profile Hexagonal Sterile 9252-8159 - [id number] Implanted:Qty: 1 on 05/20/2022 by Raymon Roque MD at [facility] Left: Hip [employer] [id number] 04/25/2027 3733-1764 / / [id number] [employer] Screw Bone Trident Ii L25mm Od6.5mm Low Profile Hexagonal Sterile 2158-1736 - [id number] Implanted:Qty: 1 on 05/20/2022 by Raymon Roque MD at [facility] Left: Hip [employer] [id number] 04/25/2027 4816-5767 / / [id number] [employer] Liner Acetabular Hip Trident X3 40mm Polyethylene 0 Degree Size E 723-00-40e - [id number] Implanted:Qty: 1 on 05/20/2022 by Raymon Roque MD at [facility] Left: Hip [employer] 04/26/2027 723-00-40E / / [id number] [place] [employer] Aequalis Cortiloc 40mm Peg Shoulder Medium Component Glenoid Ddo270 - [id number] - [id number] Implanted:Qty: 1 on 12/14/2023 by Kelvin Enriquez MD at [facility] Right: Shoulder [place] [employer] [id number] / [id number] / [employer] Simplex P Radiopaque Full Dose Cement Bone Sterile 6191-1-010 - [id number] Implanted:Qty: 1 on 12/14/2023 by Kelvin Enriquez MD at [facility] Right: Shoulder [employer] 01/07/2026 6191-1-010 / / [id number] [place] [employer] Head Perform Cocr Modular Humeral Shoulder [id number] Tpa5240 - [id number] - [id number] Implanted:Qty: 1 on 12/14/2023 by Kelvin Enriquez MD at [facility] Right: Shoulder [place] [employer] 05/19/2028 [id number] / [id number] / [place] [employer] Stem Perform Sz 2 Plus Humeral Long Dwx2pl - [id number] - [id number] Implanted:Qty: 1 on 12/14/2023 by Kelvin Enriquez MD at [facility] Right: Shoulder [place] [employer] 09/19/2028 [id number] / [id number] / [employer] Binder Folder Operator Perform Centered Modular Humeral Head Ti Npy434 - [id number] - [id number] Implanted:Qty: 1 on 12/14/2023 by Kelvin Enriquez MD at [facility] Right: Shoulder [employer] 08/19/2028 [id number] / [id number] / Insurance MEDICARE [facility] Address: [address] [address] [place] [facility] [place] Advance Directives For more information, please contact: [phone] Documents on File Type Date Recorded Patient Plaque Maker Expl anation ADVANCE DIRECTIVE 05/24/2022 9:41 AM Power of Long Term Care Administrator-Medical * Full Code (Latest Code Status on File) Date Activated Date Inactivated Comments 05/20/2022 3:27 PM 05/21/2022 2:53 PM * Full Code Date Activated Date Inactivated Comments 01/27/2022 6:07 PM 01/28/2022 6:49 PM * Full Code Date Activated Date Inactivated Comments 01/22/2019 4:30 PM 01/23/2019 4:19 PM Care Teams Hvac Specialist Relationship Specialty Start Date End Date Deborah Evans DO [address] [place] [address] [place] [address] PCP - General Sports Medicine 10/11/18
--- OUTSIDE RECORDS SUMMARY | 2025-04-30 14:52 | XMS_ITS | Clinical Summary ---
Author Organization [facility] Address [address] [place] [id number] Care Team Providers Care Covering And Lining Supervisor Name Role Phone Deborah Evans DO Primary Care Provider [phone] Allergies No known active allergies Medications DULoxetine [...] 1 tablet (20 mg total) by mouth correctional classification counselor before breakfast 0 9 Active carboxymethylce llulose [...] 1 tablet (150 mcg total) by mouth correctional classification counselor before breakfast 0 Active losartan (COZAAR) 100 mg tabletIndicatio ns:hypertension Take 1 tablet (100 mg total) by mouth every morning 0 Active calcium carbonate-vitam in D3 500mg (1,250mg) -600 unit tabletIndicatio ns:Hypocalcemia Prevention Take 1 tablet/capsule by mouth correctional classification counselor before breakfast Active buPROPion XL (WELLBUTRIN XL) [...] (03/02/2022): Added automatically from request for surgery [id number] Primary osteoarthritis of right hip 01/11/2022 Overview (01/11/2022): Added automatically from request for surgery [id number] Spinal stenosis of lumbosacral region 05/19/2021 Overview [...] (12/03/2021): Added automatically from request for surgery [id number] Date Onset: 01/03/2014 Overview: Added automatically from request for surgery [id number] Added automatically from request for surgery [id number] Chronic low back pain 01/03/2014 Overview (12/03/2021): [...] PPV23 08/31/2020,,09/16/2016 Tdap 11/10/2024,09/16/2016 ZOSTER Recombinant 02/17/2021,,02/17/2021,10/14,10/14/2020 Surgical History Surgery Date Site/Laterality Comments KS LIG/TRNSXJ FLP TUBE ABDL/VAG APPR UNI/BI 10/10/1985 - 10/09/1986 Tubal Ligation - (Added by TW Conv) BLADDER SURGERY 10/10/1999 - 10/09/2000 Bladder Surgery - (Added by MYRNA Conv) SKIN GRAFT 10/10/1961 - 10/09/1962 elizalde - BLEs CATARACT EXTRACTION W/ INTRAOCULAR LENS IMPLANT 10/10/2016 - 10/09/2017 Bilateral GLAUCOMA SURGERY 10/10/2016 - 10/09/2017 Bilateral SPINE SURGERY 10/10/2018 - 10/09/2019 bulging disc repair BACK SURGERY HIP ARTHROPLASTY 10/10/2021 - 10/09/2022 Right FLUORO GUIDED INJECTION SHOULDER RIGHT 12/30/2022 Right Medical History Medical History Date Comments Anxiety Asthma Depression Gastric reflux Sleep apnea Hypertension History of elizalde childhood - liz st downward, legs 3rd degree GERD (gastroesophageal reflux disease) Arthritis Hypoxia post-op, require d O2 after surgery, stayed in the hospital for one night Hypothyroidism Urinary incontinence Glaucoma Family History Medical History Relation Name Comments Kidney disease Brother 1 Kidney disease Brother 2 Cancer Daughter Dementia Father Heart disease Father Stroke Father Cancer Maternal Grandmother Stroke Maternal Grandmother Hypertension Mother Kidney disease Mother Cancer Sister Diabetes Son Anesthesia problems Neg Hx Malig Hypertension Neg Hx Malig Hyperthermia Neg Hx Pseudochol deficiency Neg Hx Relation Name Status Comments Brother 1 Alive Brother 2 Alive Daughter Alive breast cancer Father (Age 86) Maternal Grandmother (Age 88) br east cancer Mother (Age 78) Sister Alive breast cancer Son Alive Social History Tobacco Use Types Packs/Day Years Used Date Smoking Tobacco: Former Cigarettes 1 10 1 5 1974 Smokeless Tobacco: Never Tobacco Cessation:Counseling Given: [...] on file Legal Sex Female 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 Gender Identity Not on file Sexual Orientation Not on file Occupation Industry Job Start Date Job End Date Retired Not on file Not on file Not on file Obstetrics History Last Filed Vital Signs Vital Sign Reading Time Taken Comments Blood Pressure 163/82 11/11/2024 1:30 AM DRYWALL SPRAYER Pulse 84 11/11/2024 1:30 AM DRYWALL SPRAYER Temperature 36.4 C (97.6 F) 11/10/2024 11:00 PM DRYWALL SPRAYER Respiratory Rate 29 11/11/2024 1:30 AM DRYWALL SPRAYER Oxygen Saturation 98% 11/11/2024 1:30 AM DRYWALL SPRAYER Inhaled Oxygen Concentration - - Weight 73 kg (161 lb) 05/08/2024 1:07 PM CDT Height 156.2 cm (5' 1.5) 05/08/2024 1:07 PM CDT Body Mass Index 29.93 05/08/2024 1:07 PM CDT Plan of Treatment Health Maintenance Due Date Last Done Comments Colon Cancer Screening-Colonoscopy 1950 Depression Screening 1950 Hepatitis C Screening 1952 Hepatitis B Screening 1970 Well Visit 65+ 2017 Breast Cancer Screening-Mammogram 06/15/2023 06/15/2022, 06/15/2022, 03/11/2021, Additional history exists Covid-19 Vaccine (2023- 5 season) 2024 07/23/2021, 12/18/2020, 11/27/2020 Osteoporosis Screening-Bone Density Scan 06/15/2024 06/15/2022 Fall Risk Assessment 12/13/2024 12/14/2023, 10/20/2021, 09/01/2021, Additional history exists Influenza Vaccine (Season Ended) 2025 06/23/2021, 06/23/2021, 06/23/2021, Additional history exists DTaP/Tdap/Td Vaccine (3 - Td or Tdap) 11/10/2034 11/10/2024, 09/16/2016 Pneumococcal vaccine 65+ Completed 020, 08/31/2020, 07/18/2018, Additional history exists Zoster Vaccine Completed 02/17/2021, 02/07, 02/17/2021, Additional history exists Goals Goal Patient Goal Type Associated Problems [...] on stairs Contact your local community or [facility] for information on exercise, fall prevention programs, or options for improving home safety. Medical Devices Implanted Type Area Patient Intake Coordinator Device Identifier Shelf Expiration Date Model / Serial / Lot [employer] New[place] 56mm Sector Hip Shell Acetabular Gription Sterile Latex Free [id number] - [id number] Implanted:Qty: 1 on 01/27/2022 by Raymon Roque MD at [facility] Right: Hip [employer] [id number] 11/09/2031 [id number] / / [employer] Newfolden 6.5mm 30mm Acetabular Cancellous Screw Bone Revision 1217-30-500 - [id number] Implanted:Qty: 1 on 01/27/2022 by Raymon Roque MD at [facility] Right: Hip [employer] [id number] 06/09/2031 1217--500 / / [employer] [id number] New[place]en 56mm 40mm Hip Neutral Liner Acetabular Altrx Sterile - [id number] Implanted:Qty: 1 on 01/27/2022 by Raymon Roque MD at [facility] Right: Hip [employer] [id number] 11/09/2026 [id number] / / [employer] [id number] Actis Collared Hip 09/22 4 Standard Offset Stem Femoral - [id number] Implanted:Qty: 1 on 01/27/2022 by Raymon Roque MD at [facility] Right: Hip [employer] [id number] 04/08/2031 [id number] / / [id number] [employer] Articul/Chase 40mm Sleeve Total Stabilize Hip +1.5mm 09/22 Taper [id number] - [id number] Implanted:Qty: 1 on 01/27/2022 by Raymon Roque MD at [facility] Right: Hip [employer] [id number] 11/09/2026 [id number] / / [id number] [employer] Stem Insignia Hip Size 4 High Offset 4919-8715 - [id number] Implanted:Qty: 1 on 05/20/2022 by Raymon Roque MD at [facility] Left: Hip [employer] [id number] 03/31/2027 7462-7679 / / [id number] [employer] V40 Hip -2.5mm Offset [place] Taper Sleeve Adapter Titanium 6519-T-025 - [id number] Implanted:Qty: 1 on 05/20/2022 by Raymon Roque MD at [facility] Left: Hip [employer] [id number] 11/18/2026 6519-T-025 / / [id number] [employer] 40mm Hip [place] Taper Head Femoral Biolox Delta 6519-1-040 - [id number] Implanted:Qty: 1 on 05/20/2022 by Raymon Roque MD at [facility] Left: Hip [employer] [id number] 01/26/2027 6519-1-040 / / [id number] [employer] Shell Acetabular Trident Ii Tritanium E Od52mm Hip 11 Hole Sterile 709-04-52e - [id number] Implanted:Qty: 1 on 05/20/2022 by Raymon Roque MD at [facility] Left: Hip [employer] [id number] 04/01/2027 709-04-52E / / [id number] [employer] Screw Bone Trident Ii L25mm Od6.5mm Low Profile Hexagonal Sterile 8607-7646 - [id number] Implanted:Qty: 1 on 05/20/2022 by Raymon Roque MD at [facility] Left: Hip [employer] [id number] 04/25/2027 1273-1233 / / [id number] [employer] Screw Bone Trident Ii L25mm Od6.5mm Low Profile Hexagonal Sterile 1690-7116 - [id number] Implanted:Qty: 1 on 05/20/2022 by Raymon Roque MD at [facility] Left: Hip [employer] [id number] 04/25/2027 9364-6014 / / [id number] [employer] Liner Acetabular Hip Trident X3 40mm Polyethylene 0 Degree Size E 723-00-40e - [id number] Implanted:Qty: 1 on 05/20/2022 by Raymon Roque MD at [facility] Left: Hip [employer] 04/26/2027 723-00-40E / / [id number] [employer] Aequalis Cortiloc 40mm Peg Shoulder Medium Component Glenoid Pjl180 - [id number] - [id number] Implanted:Qty: 1 on 12/14/2023 by Kelvin Enriquez MD at [facility] Right: Shoulder [employer] [id number] / [id number] / [employer] Simplex P Radiopaque Full Dose Cement Bone Sterile 6191-1-010 - [id number] Implanted:Qty: 1 on 12/14/2023 by Kelvin Enriquez MD at [facility] Right: Shoulder [employer] 01/07/2026 6191-1-010 / / [id number] [employer] Head Perform Cocr Modular Humeral Shoulder [id number] [id number] - [id number] - [id number] Implanted:Qty: 1 on 12/14/2023 by Kelvin Enriquez MD at [facility] Right: Shoulder [employer] 05/19/2028 [id number] / [id number] / [employer] Novomer Stem Perform Sz 2 Plus Humeral Long Dwx2pl - [id number] - [id number] Implanted:Qty: 1 on 12/14/2023 by Kelvin Enriquez MD at [facility] Right: Shoulder [employer] 09/19/2028 [id number] / [id number] / [employer] Parts Sales Associate Perform Centered Modular Humeral Head Ti Obr643 - [id number] - [id number] Implanted:Qty: 1 on 12/14/2023 by Kelvin Enriquez MD at [facility] Right: Shoulder [employer] 08/19/2028 [id number] / [id number] / [place] [address] MEDICARE [facility] MEDICARE [employer] [place] [facility] [place] [address] [place]ICARE [employer] [place] Advance Directives For more information, please contact: [phone] Documents on File Type Date Recorded Patient Bi Report Developer Expl anation ADVANCE DIRECTIVE 05/24/2022 9:41 AM Power of Continuity Manager-Medical * Full Code (Latest Code Status on File) Date Activated Date Inactivated Comments 05/20/2022 3:27 PM 05/21/2022 2:53 PM * Full Code Date Activated Date Inactivated Comments 01/27/2022 6:07 PM 01/28/2022 6:49 PM * Full Code Date Activated Date Inactivated Comments 01/22/2019 4:30 PM 01/23/2019 4:19 PM Care Teams Covering And Lining Supervisor Relationship Specialty Start Date End Date Deborah Evans DO [address] [place] [address] [place] [address] PCP - General Sports Medicine 10/11/18
== END 2025-04-30 14:40 | disposition home or self-care (01) ==
PROVIDERS: PCP Family Medicine Sports Medicine; Visit Provider Surgery
DX: R91.1 Solitary pulmonary nodule (principal); K80.20 Calculus of gallbladder without cholecystitis without obstruction
CPT/HCPCS: 71250